=== PATIENT | female | born 1995 | race African-American/Black ===

== ENCOUNTER 2022-03-24 14:27 | Inpatient (IN) | payer BC ==
[~2022-03-24] VITALS: Ht 152.4 cm; Wt 53.1 kg
[2022-03-24] MEDS ORDERED: ACETAMINOPHEN 325MG TABLET PO ONE (18:15)
[2022-03-24 19:22] LABS: CLARITY URINE CLEAR (CLEAR); COLOR URINE YELLOW (YELLOW); KETONES URINE TRACE (NEGATIVE); LEUKOCYTE ESTERASE URINE NEGATIVE (NEGATIVE); NITRITE URINE NEGATIVE (NEGATIVE); OCCULT BLOOD URINE 3+ (NEGATIVE); PROTEIN URINE NEGATIVE (NEGATIVE); SPECIFIC GRAVITY URINE 1.003 (1.005-1.030); UROBILINOGEN URINE 0.2 E.U./dL (0.2-1.0)
[2022-03-24 19:22] LABS: CHLORIDE 105 mEq/L (98-107)
[2022-03-24 19:27] LABS: BASOPHILS % 0.2 % (0.0-2.0); EOSINOPHILS % 0.1 % (0.0-5.0); HEMATOCRIT. 34.5 % (36.0-48.0); HEMOGLOBIN. 11.7 g/dL (12.0-16.0); LYMPHOCYTES % 11.5 % (20.0-50.0); MEAN CORPUSCULAR HEMOGLOBIN 30.8 pg (28.0-32.0); MEAN CORPUSCULAR VOLUME 90.7 fL (81.0-99.0); MONOCYTES % 4.6 % (2.0-8.0); NEUTROPHILS % 83.6 % (40.0-76.0); PLATELET 242 x1000/uL (130-400); RED BLOOD CELL COUNT 3.81 mill/uL (4.2-5.4); RED CELL DISTRIBUTION WIDTH 13.6 % (11.6-14.6)
[2022-03-24 19:34] LABS: HCG SCREEN POSITIVE
[2022-03-24] MEDS ORDERED: SODIUM CHLORIDE 0.9% 1,000 ML IV ONE (19:45)
[2022-03-24] MEDS ORDERED: ACETAMINOPHEN 325MG TABLET PO NR (21:15)
[2022-03-24] MEDS ORDERED: PROPOFOL 200MG/20ML VIAL IV ONE (21:31)
[2022-03-24] MEDS ORDERED: FENTANYL CITRATE/PF 50MCG/ML 2ML VIAL ONE ×2 (21:32→23:56)
[2022-03-24] MEDS ORDERED: LIDOCAINE HCL 1% 10 MG/ML 10ML VIAL ONE (21:32)
[2022-03-24] MEDS ORDERED: MIDAZOLAM HCL 2 MG/2 ML VIAL ONE (21:32)
[2022-03-24] MEDS ORDERED: SUCCINYLCHOLINE CHLORIDE 200MG/10ML IV ONE (21:33)
[2022-03-24] MEDS ORDERED: ROCURONIUM BROMIDE 10MG/ML VIAL 5ML IV ONE (21:33)
[2022-03-24] MEDS ORDERED: ONDANSETRON HCL 4MG/2ML INJ IV PRN (22:15)
[2022-03-24] MEDS ORDERED: HYDROMORPHONE HCL/PF 2MG/ML CPJ IV PRN (22:15)
[2022-03-24] MEDS ORDERED: DEXAMETHASONE 4MG/ML 1ML VIAL ONE ×2 (22:29)
[2022-03-24] MEDS ORDERED: ONDANSETRON HCL 4MG/2ML INJ ONE (22:29)
[2022-03-24] MEDS ORDERED: CEFAZOLIN SODIUM 1000MG/VIAL ONE (22:58)
[2022-03-24] MEDS ORDERED: BUPIVACAINE HCL/PF 0.25% (2.5MG/ML) 10ML ONE (23:01)
[2022-03-24] MEDS ORDERED: SKIN ADHESIVE 0.7 GM EA TOP ONE (23:01)
[2022-03-24] MEDS ORDERED: BUPIVACAINE HCL 0.5% (5MG/ML) 50ML ONE (23:01)
[2022-03-24] MEDS ORDERED: NEOSTIGMINE METHYLSULFATE 1MG/ML 10 ML VIAL ONE (23:08)
[2022-03-24] MEDS ORDERED: GLYCOPYRROLATE 0.2 MG/ML 2ML VIAL ONE ×2 (23:08→23:09)
[2022-03-24] MEDS ORDERED: KETOROLAC 30MG/ML VIAL ONE (23:12)
[2022-03-25] MEDS ORDERED: ACETAMINOPHEN 325MG TABLET PO PRN
[2022-03-25] MEDS ORDERED: HYDROCODONE/ACETAMINOPHEN 5/325MG TABLET PO PRN
[2022-03-25] MEDS ORDERED: DEXT 5%/0.45% NACL KCL 20MEQ/L 1,000 ML IV SCH
[2022-03-25] MEDS ORDERED: KETOROLAC 30MG/ML VIAL IV PRN
[2022-03-25] MEDS ORDERED: ONDANSETRON HCL 4MG/2ML INJ IV PRN
[2022-03-25] MEDS ORDERED: KETOROLAC 60MG/2ML VIAL IM ONE
[2022-03-25] MEDS ORDERED: IBUP-2029 MT (00:07)
[2022-03-25] MEDS ORDERED: KETOROLAC 30MG/ML VIAL IM NR (02:00)
[2022-03-25 02:15] VITALS: BP 104/67
[2022-03-25 04:00] VITALS: BP 100/70
[2022-03-25 08:00] VITALS: BP 104/65
[2022-03-25 11:10] VITALS: BP 110/56
== END 2022-03-25 12:09 | disposition home or self-care (01) | DRG 817 ==
LOC: ER 14:59 → 6EST 20:42 → ENRESERV 21:01
PROVIDERS: ADMIT Specialist; ATTEND Specialist
PROC: 10T24ZZ Resection of Products of Conception, Ectopic, Percutaneous Endoscopic Approach (ICD-10-PCS; principal; 2022-03-24)
PROC: 0UT54ZZ Resection of Right Fallopian Tube, Percutaneous Endoscopic Approach (ICD-10-PCS; 2022-03-24)
DX: O00.101 Right tubal pregnancy without intrauterine pregnancy (principal); K66.1 Hemoperitoneum; O08.89 Other complications following an ectopic and molar pregnancy; Z80.3 Family history of malignant neoplasm of breast; Z20.822 Contact with and (suspected) exposure to COVID-19
CPT/HCPCS: 36415; 76801; 80053; 81003; 84702; 84703; 85025; 86850; 86900; 87426; 88302; 99285; C1758; J0330; J0690; J1100; J1885; J2250; J2405; J2704; J2710; J3010; J3490; J7030